=== PATIENT | female | born 2005 | race Caucasian/White ===

== ENCOUNTER 2025-01-16 06:00 | Emergency (ER) | payer MEDICAID ==
[~2025-01-16] VITALS: Ht 157.5 cm; Wt 73.0 kg
[2025-01-16 06:07] VITALS: O2SAT 99
[2025-01-16] MEDS: ACETAMINOPHEN 325MG TABLET PO ONE (08:03)
[2025-01-16] MEDS: FAMOTIDINE 20MG TABLET PO ONE (08:04)
[2025-01-16 08:10] LABS: BASOPHILS % 0.5 % (0.0-2.0); EOSINOPHILS % 0.9 % (0.0-5.0); HEMATOCRIT. 42.7 % (36.0-48.0); HEMOGLOBIN. 14.4 g/dL (12.0-16.0); LYMPHOCYTES % 13.1 % (20.0-50.0); MEAN PLATELET VOLUME 7.5 fl (7.4-10.4); MONOCYTES % 4.0 % (2.0-8.0); NEUTROPHILS % 81.5 % (40.0-76.0); PLATELET 335 x1000/uL (130-400); RED BLOOD CELL COUNT 4.53 mill/uL (4.2-5.4); RED CELL DISTRIBUTION WIDTH 13.1 % (11.6-14.6)
[2025-01-16 08:25] LABS: CREATININE 0.9 mg/dL (0.6-1.0)
[2025-01-16 08:26] LABS: TROPONIN I HIGH SENSITIVITY < 4 ng/L (3.0-34); UREA NITROGEN BLOOD 8 mg/dL (9-23)
[2025-01-16 08:40] LABS: HCG SCREEN NEGATIVE
[2025-01-16 08:44] VITALS: BP 101/66; PULSE 87; RESP 14; TEMP 36.6; O2SAT 99
== END 2025-01-16 09:05 | disposition home or self-care (01) ==
LOC: ER 06:00
DX: R07.89 Other chest pain (principal); R00.0 Tachycardia, unspecified
CPT/HCPCS: 36415; 71045; 80048; 84484; 84703; 85025; 85379; 93005; 99285